=== PATIENT | female | born 1995 | race Caucasian/White ===

== ENCOUNTER → 2020-03-01 | Outpatient (REF) | payer SELFPAY | LOC: M LAB REF 12:36 | PROVIDERS: ATTEND Physician Assistant | DX: M54.5 Low back pain (principal) ==

== ENCOUNTER 2020-04-04 06:44 | Emergency (ER) | payer SELFPAY ==
[~2020-04-04] VITALS: Ht 162.6 cm; Wt 75.0 kg
--- NOTE | 2020-04-04 08:00 | REP ---
Right ankle series: Four views. History: Injury in a fall from a tree. Findings: Four views right ankle demonstrate moderate anterolateral soft-tissue swelling. Ankle mortise is intact. No fracture is visible. No subluxation seen. Impression: Anterolateral soft-tissue swelling. No fracture seen. Electronically Signed by Pieter Khalil MD 04/04/2020 07:52 A
[2020-04-04 08:12] VITALS: BP 118/70
[2020-04-04] MEDS ORDERED: ACETAMINOPHEN TAB 650MG DOSE (2X325MG) PO ONE (08:15)
== END 2020-04-04 08:14 | disposition home or self-care (01) ==
LOC: M ED 06:44
DX: S93.401A Sprain of unspecified ligament of right ankle, initial encounter (principal); W14.XXXA Fall from tree, initial encounter; Y92.89 Other specified places as the place of occurrence of the external cause; Y93.9 Activity, unspecified; Y99.9 Unspecified external cause status

== ENCOUNTER → 2021-07-26 | Outpatient (CLI) | payer SELFPAY ==
[2021-07-26 17:28] LABS: HEMATOCRIT 36.6 % (36.0-47.0); HEMOGLOBIN 11.9 g/dl (12.0-15.5); MEAN CORPUSCULAR HEMOGLOBIN 28.8 pg (27.0-33.0); MEAN CORPUSCULAR HGB CONC 32.5 g/dl (32.0-36.5); MEAN CORPUSCULAR VOLUME 88.6 fl (80.0-96.0); PLATELET COUNT, AUTOMATED 216 10^3/uL (150-450); RED BLOOD COUNT 4.13 10^6/uL (4.00-5.40); WHITE BLOOD COUNT 9.4 10^3/uL (4.0-10.0)
[2021-07-26 18:40] LABS: HEPATITIS C VIRUS ABY INDEX < 0.0 INDEX (<0.8); HIV 1&2 SCREEN CENTAUR NEGATIVE (NEGATIVE)
[2021-07-26 19:21] LABS: GC DNA AMPLIFICATION NEGATIVE (NEGATIVE)
== END ==
LOC: M PLALAB 15:40
PROVIDERS: ATTEND Obstetrics & Gynecology
DX: Z34.00 Encounter for supervision of normal first pregnancy, unspecified trimester (principal); Z3A.00 Weeks of gestation of pregnancy not specified

== ENCOUNTER → 2021-08-06 | Outpatient (CLI) | payer SELFPAY ==
--- NOTE | 2021-08-06 11:48 | REP ---
INDICATION: ANATOMY. COMPARISON: None. TECHNIQUE: Real-time sonographic evaluation of the gravid uterus performed. FINDINGS: Estimated gestational age is22 weeks 3 days, EDC 12/07/2021. Today's measurements indicate appropriate growth. Presentation: Cephalic Placenta anterior, grade 0, without evidence of placenta previa. heart rate is recorded at 147 beats per minute. Amniotic fluid is subjectively normal. Closed cervical length is measured at 4.3 cm. Biometry chart: BPD: 53 mm, 22 weeks days, 0 42nd percentile. HC: 201 mm, 22 weeks 2 days, 46th percentile AC: 168 mm, 21 weeks 5 days, 37th percentile Femur length: 38 mm, 22 weeks 1 days, 45th percentile HC to AC ratio: 1.20, normal range 1.04-1.23. Estimated weight: 467g, 26th percentile. anatomy: Cranium: Grossly normal Lateral Ventricles/Choroid Plexus: Grossly normal Posterior Fossa/Cerebellum: Grossly normal Nose/lips/profile: Grossly normal Four chamber heart: Grossly normal Right ventricular outflow tract: Grossly normal Left ventricular outflow tract: Grossly normal except for an echogenic focus in the left ventricle early likely related to chordae tendineae. Left-sided stomach: Grossly normal Kidneys: Grossly normal Bladder: Grossly normal Cord Insertion: Grossly normal 3 vessel cord: Grossly normal Spine: Grossly normal IMPRESSION: Viable single intrauterine gestation as above. <Electronically signed by Elder Durand > 08/06/21 [id number]
== END ==
LOC: M WHC 07:56
PROVIDERS: ATTEND Obstetrics & Gynecology
DX: Z34.02 Encounter for supervision of normal first pregnancy, second trimester (principal); Z36.89 Encounter for other specified antenatal screening; Z3A.22 22 weeks gestation of pregnancy

== ENCOUNTER → 2021-08-22 | Outpatient (REF) | payer SELFPAY | LOC: M SFHCWAGY 13:04 | PROVIDERS: ATTEND Advanced Practice Midwife | DX: Z36.89 Encounter for other specified antenatal screening (principal); Z3A.24 24 weeks gestation of pregnancy ==

== ENCOUNTER 2021-09-21 15:05 | Emergency (ER) | payer OTHER, SELFPAY ==
[~2021-09-21] VITALS: Ht 162.6 cm; Wt 84.1 kg
--- OUTSIDE RECORDS SUMMARY | 2021-09-21 15:16 | CCD ---
Author Author [facility] Address Unknown Phone Unavailable Support Name Relationship Address Phone CHAITANYA DIXON Next Of Kin [address] [place] [address] TULLYS Next Of Kin [address] [place] [address] BECKIE FINK Next [facility] Kin [facility] [place] [id number] UE Next Of Kin Unknown Unavailable LETHA TENORIO Next Of Kin [address] [place] [address] LANDEN TENORIO Next Of Kin [address] [place] [address] LOUISE SEPULVEDA Next Of Kin [address] [place] [address] CHAITANYA DIXON ECON [address] [place] [address] Unavailable Re-disclosure Warning The records that you are about to access may contain information from federally-assisted alcohol or drug abuse programs. If such information is present, then the following federally mandated warning applies: This information has been disclosed to you from records protected by federal confidentiality rules (42 CFR part 2). The federal rules prohibit you from making any further disclosure of this information unless further disclosure is expressly permitted by the written consent of the person to whom it pertains or as otherwise permitted by 42 CFR part 2. A general authorization for the release of medical or other information is NOT sufficient for this purpose. The Federal rules restrict any use of the information to criminally investigate or prosecute any alcohol or drug abuse patient.The records that you are about to access may contain highly sensitive health information, the redisclosure of which is protected by Article 27-F of the [place] State Public Health law. If you continue you may have access to information: Regarding HIV / AIDS; Provided by facilities licensed or operated by the [facility] Office of Mental Health; or Provided by the [facility] Office for People With Developmental Disabilities. If such information is present, then the following [facility] mandated warning applies: This information has been disclosed to you from confidential records which are protected by state law. State law prohibits you from making any further disclosure of this information without the specific written consent of the person to whom it pertains, or as otherwise permitted by law. Any unauthorized further disclosure in violation of state law may result in a fine or [place] [facility] sentence or both. A general authorization for the release of medical or other information is NOT sufficient authorization for further disc losure. Encounters Encounter Providers Location Date Indications Data Source(s ) Unknown [address] [facility], [facility] [address] 09/04/2021 12:00:00 AM EST eCW1 ([facility]) ( ESTOB) [facility] [address] [place] [address] 08/22/2021 12:00:00 AM EST eCW1 ([facility]) Unknown [address] [facility] [address] 07/29/2021 12:00:00 AM EDT eCW1 ([facility]) ( NEWOB) [facility] [address] [place] [address] 07/26/2021 12:00:00 AM EDT eCW1 ([facility]) Immunizations Vaccine Date Status Description Data Source(s) New in 2011. IIV4 07/26/2021 03:57:00 PM EDT completed eCW1 ([facility]) New in 2011. IIV4 07/26/2021 03:57:00 PM EDT completed eCW1 ([facility]) New in 2011. IIV4 07/26/2021 03:57:00 PM EDT completed eCW1 ([facility]) New in 2011. IIV4 07/26/2021 03:57:00 PM EDT completed eCW1 ([facility]) COVID-19 VACCINE Kaden 03/25/2021 12:00:00 AM EDT completed [facility] Vaccine Series Complete: YESThis Data wa s Submitted to [facility] Via [employer]. Medications Medication Brand Name Start Date Product Form Dose Route Admi nistrative Instructions Pharmacy Instructions Status Indications Reaction Description Data Source(s) NITROFURANTOIN, MACROCRYSTALS 25 MG / Ni trofurantoin, Monohydrate 75 MG Oral Capsule 100 mg NITROFURANTOIN MONOHYD/M-CRYST 09/04/2021 12:00:00 AM EST ca psule 14 TAKE ONE CAPSULE BY MOUTH TWICE A DAY FOR 7 DAYS TAKE ONE CAPSULE BY MOUTH TWICE A DAY FOR 7 DAYS SOLD: 09/04/2021 [facility] NITROFURANTOIN, MACROCRYSTALS 25 MG / Ni trofurantoin, Monohydrate 75 MG Oral Capsule Nitrofurantoin Monohyd Macro 100 MG Nitrofurantoin Monohyd Macro 100 MG 07/29/2021 12:00:00 AM EDT 1.0 {capsule} active Nitrofurantoin Monohyd Macro 100 MG eCW1 ([facility]) NITROFURANTOIN, MACROCRYSTALS 25 MG / Ni trofurantoin, Monohydrate 75 MG Oral Capsule Nitrofurantoin Monohyd Macro 100 MG Nitrofurantoin Monohyd Macro 100 MG 07/29/2021 12:00:00 AM EDT 1.0 {capsule} active Nitrofurantoin Monohyd Macro 100 MG eCW1 ([facility]) NITROFURANTOIN, MACROCRYSTALS 25 MG / Ni trofurantoin, Monohydrate 75 MG Oral Capsule Nitrofurantoin Monohyd Macro 100 MG Nitrofurantoin Monohyd Macro 100 MG 07/29/2021 12:00:00 AM EDT 1.0 {capsule} suspend ed Nitrofurantoin Monohyd Macro 100 MG eCW1 ([facility]) NITROFURANTOIN, MACROCRYSTALS 25 MG / Ni trofurantoin, Monohydrate 75 MG Oral Capsule Nitrofurantoin Monohyd Macro 100 MG Nitrofurantoin Monohyd Macro 100 MG 07/29/2021 12:00:00 AM EDT 1.0 {capsule} active Nitrofurantoin Monohyd Macro 100 MG eCW1 ([facility]) NITROFURANTOIN, MACROCRYSTALS 25 MG / Ni trofurantoin, Monohydrate 75 MG Oral Capsule 100 mg NITROFURANTOIN MONOHYD/M-CRYST 07/29/2021 12:00:00 AM EDT ca psule 14 TAKE ONE CAPSULE BY MOUTH TWICE A DAY FOR 7 DAYS TAKE ONE CAPSULE BY MOUTH TWICE A DAY FOR 7 DAYS SOLD: 07/29/2021 [facility] Insurance Providers Payer name Policy type / Coverage type Policy ID Covered alliance party ID Covered alliance party's relationship to willis Policy Willis Plan Information SELF PAY ONLY [id number] SP [id number] SELF PAY ONLY [id number] SP [id number] UNHC AMERICHOICE XIX -HMO [id number] 18 [id number] [facility] O [id number] S [id number] Medicaid Dental P [id number] S [id number] UNHC AMERICHOICE XIX -HMO UNAVAILABLE UNAVAILABLE UNHC COMMUNITY PLAN MCDO [id number] SP [id number] MEDICAID -CLINIC [id number] 18 [id number] MEDICAID P [id number] MEDICAID-O/P [id number] AETNA-O/P [id number] AETNA HEALTH SEIU AGUILA P [id number] O [id number] MEDICAID S UNAVAILABLE O UNAVAILA BLE AETNA HEALTH SEIU AGUILA P UNAVAILABLE O UNAVAILABLE MEDICAID-O/P [id number] 18 [id number] Problems, Conditions, and Diagnoses Code Display Name Description Problem Type Effective Dates Data Source(s) Z34.80 care Supervision of other normal Otto varela 07/26/2021 12:00:00 AM EDT eCW1 ([facility]) Surgeries/Procedures No Information Results ID Date Data Source [id number] 08/01/2021 09:05:00 PM EDT [facility] Name Value Range Interpretation Code Description Data Lidia rce(s) Supporting Document(s) Interpretation: No variant detected. [facility] Cystic Fibrosis Mutation PDF . [facility] Cystic Fibrosis Mutation 97 Comment: [facility] RESULTS: Negative for the 97 mutations a nalyzedINTERPRETATION:This individual is negative for the mutations analyzed.This negative result may need further interpretationdepending on the clinical indication. This result reducesbut does not eliminate the risk to be a CF carrier.COMMENTS:The detection rate varies with ethnicity and is listedbelow. The presence of an undetected mutation in the CFgene cannot be ruled out. In the absence of family history,the remaining risk that a person with a negative resultcould have at least one CF mutation is listed in the table.If there is a family history of CF, these risk figures donot apply. As detailed information regarding thisindividual's family history would permit a more accurateassessment of this individual's risk to be a carrier ofcystic fibrosis, please contact [facility] [phone] for a revised report.Mutation Detection Detection rates are based on mutationRates among Ethnic frequencies in patients affected withGroups cystic fibrosis. Among individuals with an atypical or mild presentation (e.g. congenital absence of the vas deferens, pancreatitis) detection rates may vary from those provided here. Carrier risk reduction when no family DetectionEthnicity history Rate ReferencesAfrican to 81% Nadya in Med 3:168, 2000AmericanAshkenazi 11/06 to 97% Am J Hum Nadya 51:951,1993JewishAsian - Not Insufficient data ProvidedCaucasian 11/05 to 93% Nadya in Med 3:168,2000; Nadya in Med 4:90, 2001Hispanic to 78% Nadya in Med 3:168,2000; www.dhs.[place].gov/pcfh/gdb /html/PDE/CFStudy.htmJewi, - Varies by Nadya Testing 5:47, 2000non-[facility] country Nadya Testing, 1:35, 1996 of originOther orMixed - Not Detection rate notEthnicity Provided determined and varies with ethnicityThis interpretation is based on the clinical and familyrelationship information provided and the currentunderstanding of the molecular genetics of this condition.MUTATIONS ANALYZED:tbvaaL594 0198ifp6 CFTRdele2,3 R334W*iozjtA993* 3659delC* U1989K R302ThksafL071* 1825rnn4 E60X R347P*1078delT 3791delC E92X O671F0061gqpVX 3849+10kbC to T* G178R R553X*1677delTA 3876delA G330X R560T*1717-1G to A* 3905insT G480C J030X0122-6Q to A 394delTT G542X* T98F8998+1G to A* 4016insT G551D* R812Q1687+5G to T 405+1G to A G85E* M8340H4547zwu67 405+3A to C K710X M5864M7665nwrK 406- 1G to A L206W T7765X7841sjg8 to A 444delA P0417S A833D6659pgv63txr4 457TAT to G Y4752L* N737H3683wrbK 574delA P574H S549R T to R3547gkxB 621+1G to T* V7030D C487F3910rrgPA to G 663delT Q359K/T360K J336P3160qraG* 711+1G to T* Q493X F1575N2115vnsZ 711+5G to A Q552X O2322A2417pkzU 712-1G to T Q890X J4528G*2789+5G to A* 935delA U1706E N2321U C to G4412rarE 936delTA H2669X V6729X C to G3120+1G to A* A455E* W2959Q* O336U8591V to A A559T Y816L0582gxfK C524X R117HACOG/ACMG recommendedMETHODS/LIMITATIONS:DNA is isolated from the sample and tested for the 97 CFmutations on the [employer] Array Platform (Rapid Mobile).Regions of the CFTR gene are amplified enzymatically andsubjected to a solution-phase multiplex allele-specificprimer extension with subsequent hybridization to a beadarray and fluorescence detection. Polymorphisms F508C,I506V and I507V are included in this panel to rule outfalse positive bkulcN944 homozygotes. Reflex testing of5T is included in the panel for R117H interpretation.False positive or negative results may occur for reasonsthat include genetic variants, blood transfusions, bonemarrow transplantation, erroneous representation offamily relationships or contamination of a samplewith maternal cells. The assay provides informationintended to be used for carrier screening in adults ofreproductive age, as an aid in screening, andas a confirmatory test for another medicallyestablished diagnosis in newborns and children. Thetest is not intended for use in diagnostictesting, pre-implantation screening, or for anystand-alone diagnostic purposes without confirmationby another medically established diagnostic productor procedure.Results Released By: Chris Elizabeth, Ph.D. , DirectorReport Released By: Chris Elizabeth, Ph.D., Director ID Date Data Source [id number] 08/01/2021 08:06:00 PM EDT [facility] Name Value Range Interpretation Code Description Data Lidia rce(s) Supporting Document(s) Informed Consent Needed [facility] TEST ORDERED: [id number] CYSTIC FIBROSIS MUT ATION 97Please Fax back to [phone]. Many states require laboratoriesto have documentation that the appropriate health care providerhas obtained informed consent from patients before the laboratoryconducts genetic testing. Informed consent includes the patientunderstanding the purpose of the test, how the test is performed,the reliability of the test, alternatives to testing, implicationsof test results, and options on how to instruct the laboratory tostore, use or dispose of the sample when testing is complete. [facility] did not receive any documentation of informed consentfor above mentioned patient and ordered tests. Please check thestatement applicable to this patient and sign below so that [facility]. [] I authorize and confirm patient consent for the above mentionedgenetic test(s). [] I have provided appropriate informed consent for the above mentioned test(s) and documentation of this consent is maintained in the patient record. Health care provider signature Date Printed name Fax back to [facility] at [phone] [facility] ID Date Data Source URINE CULTURE 07/26/2021 12:00:00 AM EDT eCW1 ([facility]) Name Value Range Interpretation Code Description Data Lidia rce(s) Supporting Document(s) URINE CULTURE eCW1 ([facility]) ID Date Data Source HBSAG 07/26/2021 12:00:00 AM EDT eCW1 ([facility]) Name Value Range Interpretation Code Description Data Lidia rce(s) Supporting Document(s) NEGATIVE NEGATIVE HBsAg eCW1 ([facility]) ID Date Data Source RUBELLA IMMUNE STATUS IgG 07/26/2021 12:00:00 AM EDT eCW1 ([facility]) Name Value Range Interpretation Code Description Data Lidia rce(s) Supporting Document(s) IMMUNE IMMUNE RUBELLA IgG QUALITATIVE eCW1 ( [facility]) ID Date Data Source SYPHILIS ANTIBODY (RPR SCREEN) 07/26/2021 12:00:00 AM EDT eC W1 ([facility]) Name Value Range Interpretation Code Description Data Lidia rce(s) Supporting Document(s) NONREACTIVE NONREACTIVE SYPHILIS eCW1 ([facility]) ID Date Data Source [id number] 07/26/2021 12:00:00 AM EDT eCW1 ([facility]) Name Value Range Interpretation Code Description Data Lidia rce(s) Supporting Document(s) HIV 1and2 ANTIBODY SCREEN eCW1 ([facility]) ID Date Data Source HEPATITIS C ANTIBODY INDEX 07/26/2021 12:00:00 AM EDT eCW1 ( [facility]) Name Value Range Interpretation Code Description Data Lidia rce(s) Supporting Document(s) < 0.0 <0.8 HEPATITIS C VIRUS JULIANA IND EX eCW1 ([facility]) ID Date Data Source CHLAMYDIA & GC DNA AMPLIFICAT 07/26/2021 12:00:00 AM EDT eCW 1 ([facility]) Name Value Range Interpretation Code Description Data Lidia rce(s) Supporting Document(s) Chlamydia trachomatis rRNA [Presence] in Unspecified specimen by Probe and target amplification method NEGATIVE NEGATIVE CHLAMYDIA DNA AMPLIFICATION eCW1 ([facility]) ID Date Data Source CBC - Complete Blood Count 07/26/2021 12:00:00 AM EDT eCW1 ( [facility]) Name Value Range Interpretation Code Description Data Lidia rce(s) Supporting Document(s) 9.4 4.0-10.0 WHITE BLOOD COUNT eCW1 ([facility]) 4.13 4.00-5.40 RED BLOOD COUNT eCW1 ([facility]) 36.6 36.0-47.0 HEMATOCRIT eCW1 ([facility]) 88.6 80.0-96.0 MEAN CORPUSCULAR VOLUME e CW1 ([facility]) 11.9 12.0-15.5 HEMOGLOBIN eCW1 ([facility]) 12.7 11.5-14.5 RED CELL DISTRIBUTION WID TH eCW1 ([facility]) 216 150-450 PLATELET COUNT, AUTOMATED eCW1 ([facility]) 32.5 32.0-36.5 MEAN CORPUSCULAR HGB CONC eCW1 ([facility]) 28.8 27.0-33.0 MEAN CORPUSCULAR HEMOGLOB IN eCW1 ([facility]) ID Date Data Source Type and Screen Prenatal1 07/26/2021 12:00:00 AM EDT eCW1 ([facility]) Name Value Range Interpretation Code Description Data Lidia rce(s) Supporting Document(s) NEGATIVE AB SCREEN PNP1 GEL (VIS) eCW1 ([facility]) Procedure Social History Code Duration Value Status Description Data Source(s ) Smoking 08/22/2021 12:00:00 AM EST Never Smoker completed Never S moker eCW1 ([facility]) Smoking 08/22/2021 12:00:00 AM EST Never Smoker completed Never S moker eCW1 ([facility]) Smoking 07/26/2021 12:00:00 AM EDT Never Smoker completed Never S moker eCW1 ([facility]) Smoking 07/26/2021 12:00:00 AM EDT Never Smoker completed Never S moker eCW1 ([facility]) Vital Signs ID Date Data Source UNK Name Value Range Interpretation Code Description Data Source(s) Body weight 185 [lb_av] 185 [lb_av] eCW1 ([facility]) Body weight 83.91 kg 83.91 kg eCW1 ([facility]) Body height 64 [in_i] 64 [in_i] eCW1 ([facility]) Body mass index (BMI) [Ratio] 31.755 kg/m2 31.7 55 kg/m2 eCW1 ([facility]) Systolic blood pressure 126 mm[Hg] 126 mm[Hg] e CW1 ([facility]) Diastolic blood pressure 70 mm[Hg] 70 mm[Hg] eCW1 ([facility]) Body mass index (BMI) [Ratio] 31.069 kg/m2 31.0 69 kg/m2 eCW1 ([facility]) Body weight 181 [lb_av] 181 [lb_av] eCW1 ([facility]) Body height 64 [in_i] 64 [in_i] eCW1 ([facility]) Systolic blood pressure 138 mm[Hg] 138 mm[Hg] e CW1 ([facility]) Diastolic blood pressure 78 mm[Hg] 78 mm[Hg] eCW1 ([facility]) Patient Treatment Plan of Care Planned Activity Planned Date Details Description Data Source (s) NITROFURANTOIN, MACROCRYSTALS 25 MG / Ni trofurantoin, Monohydrate 75 MG Oral Capsule 07/29/2021 12:00:00 AM EDT eCW1 ([facility]) NITROFURANTOIN, MACROCRYSTALS 25 MG / Ni trofurantoin, Monohydrate 75 MG Oral Capsule 07/29/2021 12:00:00 AM EDT eCW1 ([facility]) NITROFURANTOIN, MACROCRYSTALS 25 MG / Ni trofurantoin, Monohydrate 75 MG Oral Capsule 07/29/2021 12:00:00 AM EDT eCW ([facility])
--- OUTSIDE RECORDS SUMMARY | 2021-09-21 15:16 | CCD ---
Author Author [facility] Organization [facility] Address Unknown Phone Unavailable Care Team Providers Care Rolled Seat Trimmer Name Role Phone JimmyDunia Davis Unavailable PROBLEMS Type Condition ICD9-CM Code QPI68-YD Code Onset Dates Condition S tatus W/U Status Risk SNOMED Code Notes Problem Supervision of other normal Z34.80 Ac tive confirm [id number] ALLERGIES No Known Allergies ENCOUNTERS from 1997 to 2021-07-31 Encounter Location Date Provider Diagnosis [facility] [address] [place] [address] [place] [address] Jul, Dunia Allison Encounter for superv ision of normal first in second trimester Z34.02 ; 22 weeks gestation of Z3A.22 and Encounter for immunization Z23 IMMUNIZATIONS Vaccine Route Administration Date Status Influenza 6mo & up Fluzone IM Intramuscular Jul 26, 2021 Admi nistered SOCIAL HISTORY Tobacco Use: Social History Observation Description Date Details (start date - stop date) Never Smoker Sex Assigned At : Social History Observation Description Sex Assigned At Unknown Tobacco Use: Question Answer Notes Are you a: never smoker REASON FOR REFERRAL No Information VITAL SIGNS Weight 181 lbs Jul, Height 64 in Jul, BMI 31.069 kg/m2 Jul, Blood pressure systolic 138 mm Hg Jul, Blood pressure diastolic 78 mm Hg Jul, MEDICATIONS Medication SIG (Take, Route, Frequency, Duration) Notes Start Da te End Date Status 28-0.8 MG 1 tablet Orally Once a day Active Nitrofurantoin Monohyd Macro 100 MG 1 capsule Orally twice a day for 7 days 18 Jul, 2021 Active PROCEDURES No Information RESULTS Component Value Reference Range Type and Screen Prenatal1 Reviewed date:07/28/2021 17:56:04 Interpretation: Performing Lab:[facility] [address] [facility] [address] , ,[place] [address] AB SCREEN PNP1 GEL (VIS) NEGATIVE CBC - Complete Blood Count Reviewed date:07/28/2021 17:57:24 Interpretation: Performing Lab:[facility] [address] [place] [address] , ,[place] [address] WHITE BLOOD COUNT 9.4 4.0-10.0 RED BLOOD COUNT 4.13 4.00-5.40 HEMOGLOBIN 11.9 12.0-15.5 HEMATOCRIT 36.6 36.0-47.0 MEAN CORPUSCULAR VOLUME 88.6 80.0-96.0 MEAN CORPUSCULAR HEMOGLOBIN 28.8 27.0-33.0 MEAN CORPUSCULAR HGB CONC 32.5 32.0-36.5 RED CELL DISTRIBUTION WIDTH 12.7 11.5-14.5 PLATELET COUNT, AUTOMATED 216 150-450 CHLAMYDIA & GC DNA AMPLIFICAT Reviewed date:07/28/2021 17:57:56 Interpretation: Performing Lab:[facility] [address] [place] [address] , ,[place] [address] CHLAMYDIA DNA AMPLIFICATION NEGATIVE NEGATIVE GC DNA AMPLIFICATION NEGATIVE NEGATIVE HEPATITIS C ANTIBODY INDEX Reviewed date:07/28/2021 17:58:06 Interpretation: Performing Lab:[facility] [address] [place] [address] , ,[place] [address] HEPATITIS C VIRUS JULIANA INDEX < 0.0 <0.8 HIV 1and2 ANTIBODY SCREEN Reviewed date:07/28/2021 17:59:00 Interpretation: Performing Lab:[facility] [address] [place] [address] , ,[place] [address] SYPHILIS ANTIBODY (RPR SCREEN) Reviewed date:07/28/2021 17:59:13 Interpretation: Performing Lab:[facility] [address] [facility] [address] , ,[place] [address] SYPHILIS NONREACTIVE NONREACTIVE RUBELLA IMMUNE STATUS IgG Reviewed date:07/28/2021 17:59:23 Interpretation: Performing Lab:[facility] [address] [facility] [address] , ,[place] [address] RUBELLA IgG QUALITATIVE IMMUNE IMMUNE HBSAG Reviewed date:07/28/2021 18:00:02 Interpretation: Performing Lab:[facility] [address] [facility] [address] , ,[place] [address] HBsAg NEGATIVE NEGATIVE URINE CULTURE Reviewed date:07/29/2021 11:12:05 Interpretation: Performing Lab:[facility] [address] [facility] [address] , ,[place] [address] REASON FOR VISIT 1st pn MEDICAL (GENERAL) HISTORY Type Description Date Medical History asthma Surgical History tonsilectomy Hospitalization History see above Goals Section No Information Health Concerns No Information MEDICAL EQUIPMENT No Information MENTAL STATUS No Information FUNCTIONAL STATUS No Information ASSESSMENTS Encounter Date Diagnosis Assessment Notes Treatment Notes Treatm ent Clinical Notes Jul, Encounter for supervision of normal first in second trimester (ICD-10 - Z34.02) Jul, 22 weeks gestation of (ICD-10 - Z3A.22 ) Jul, Encounter for immunization (ICD-10 - Z23) PLAN OF TREATMENT Medication Medication Name Sig Start Date Stop Date Nitrofurantoin Monohyd Macro 100 MG 1 capsule Orally twice a day for 7 days Jul, Treatment Notes Test Name Order Date CF plus (97 mutation gene) 2021-07-26 SMN1 COPY NUMBER ANALYSIS 2021-07-26 [facility] OBS COMPLETE US 2021-07-26 Imm: Fluzone 6mo & older 0.5mL IM Influenza 2021-07-26 Next Appt Details 4 Weeks Reason: Provider Name:Mallorie Carol Youleonoralakeshawn, 2021-08-22 08:05:00 AM, [address] [facility], , [place], [address], Follow Up:4 WeeksPrenatal
--- OUTSIDE RECORDS SUMMARY | 2021-09-21 15:16 | CCD ---
Author Author [facility] Organization [facility] Address Unknown Phone Unavailable Care Team Providers Care Objective C Developer Name Role Phone Dunia Allison Unavailable PROBLEMS Type Condition ICD9-CM Code GCE51-PR Code Onset Dates Condition S tatus W/U Status Risk SNOMED Code Notes Problem Supervision of other normal Z34.80 Ac tive confirm [id number] ALLERGIES No Known Allergies ENCOUNTERS from 1997 to 2021-08-06 Encounter Location Date Provider Diagnosis [facility] [address] [place] [address] [place] [address] Jul, Dunia Keegan IMMUNIZATIONS Vaccine Route Administration Date Status Influenza [...] REASON FOR REFERRAL No Information VITAL SIGNS No information MEDICATIONS Medication SIG (Take, Route, Frequency, Duration) Notes Start Da te End Date Status 28-0.8 MG 1 tablet Orally Once a day Active Nitrofurantoin Monohyd Macro 100 MG 1 capsule Orally twice a day for 7 days Jul, Active PROCEDURES No Information RESULTS No Results REASON FOR VISIT UTI MEDICAL (GENERAL) HISTORY Type Description Date Medical History asthma Surgical History tonsilectomy Hospitalization History see above Goals Section No Information Health Concerns No Information MEDICAL EQUIPMENT No Information MENTAL STATUS No Information FUNCTIONAL STATUS No Information ASSESSMENTS No Information PLAN OF TREATMENT Medication Medication Name Sig Start Date Stop Date Nitrofurantoin Monohyd Macro 100 MG 1 capsule Orally twice a day for 7 days Jul, Next Appt Details Provider Name:Mallorie Mcdermott, 2021-08-22 08:05:00 AM, [address] [facility], , [place], [address],
--- OUTSIDE RECORDS SUMMARY | 2021-09-21 15:16 | CCD ---
Author Author [facility] Organization [facility] Address Unknown Phone Unavailable Care Team Providers Care Workforce Investment Act Career Manager Name Role Phone Mallorie Mcdermott Unavailable PROBLEMS Type Condition ICD9-CM Code [id number] Code Onset Dates Condition S tatus W/U Status Risk SNOMED Code Notes Problem Supervision of other normal Z34.80 Ac tive confirm [id number] ALLERGIES No Known Allergies ENCOUNTERS from 1997 to 2021-08-23 Encounter Location Date Provider Diagnosis [facility] [address] [place] [address] [place] [address] Aug, Mallorie Mcdermott 24 weeks gestatio n of Z3A.24 and Encounter for supervision of normal first , second trimester Z34.02 IMMUNIZATIONS Vaccine Route Administration Date Status Influenza [...] FOR REFERRAL No Information VITAL SIGNS Weight 185 lbs Aug, Weight-kg 83.91 kg Aug, Height 64 in Aug, BMI 31.755 kg/m2 Aug, Blood pressure systolic 126 mm Hg Aug, Blood pressure diastolic 70 mm Hg Aug, MEDICATIONS Medication SIG (Take, Route, Frequency, Duration) Notes Start Da te End Date Status Nitrofurantoin Monohyd Macro 100 MG 1 capsule Orally twice a day for 7 days 18 Jul, 2021 Not-Taking 28-0.8 MG 1 tablet Orally Once a day Active PROCEDURES No Information RESULTS No Results REASON FOR VISIT 4 WK PN MEDICAL (GENERAL) HISTORY Type Description Date Medical History asthma Surgical History tonsilectomy Hospitalization History see above Goals Section No Information Health Concerns No Information MEDICAL EQUIPMENT No Information MENTAL STATUS No Information FUNCTIONAL STATUS No Information ASSESSMENTS Encounter Date Diagnosis Assessment Notes Treatment Notes Treatm ent Clinical Notes Aug, 24 weeks gestation of (ICD-10 - Z3A.24 ) Aug, Encounter for supervision of normal first , second trimester (ICD-10 - Z34.02) PLAN OF TREATMENT Pending Tests Test Name Order Date AB SCREEN (INDIRECT MARIBETH)GEL Antibody Screen 2021-08 Type and Screen (D Rh Antibody Screen) 2021-08-22 CBC - Complete Blood Count 2021-08-22 CHLAMYDIA and GC DNA AMPLIFICAT 2021-08-22 URINE CULTURE 2021-08-22 Glucose Challenge Test 1 Hour 2021-08-22 Next Appt Details 4 Weeks Reason:- Routine follow up Provider Name:Tito Cullen, 2021-09-23 0 9:00:00 AM, [address] [facility], , [place], [address], Follow Up:4 Weeks- Routine follow up
[2021-09-21 15:42] VITALS: BP 130/54
--- OUTSIDE RECORDS SUMMARY | 2021-09-21 17:03 | CCD ---
Author Author [facility] Organization [facility] Address Unknown Phone Unavailable Support Name Relationship Address Phone CHAITANYA DIXON Next Of Kin [address] [place] [address] TULLYS Next Of Kin [address] [place] [address] BECKIE [place] [address] UE Next Of Kin Unknown Unavailable LETHA TENORIO Next Of Kin [address] [place] [address] LANDEN TENORIO Next Of Kin [address] [place] [address] LOUISE SEPULVEDA Next Of Kin [address] [place] [address] CHAITANYA DIXON ECON [address] [place] [address] Unavailable Re-disclosure Warning The records that you [...] is protected by Article 27-F of the [place] State Public Health law. If you continue you may have access to information: Regarding HIV / AIDS; Provided by facilities licensed or operated by the [facility] Office of Mental Health; or Provided by the [facility] Office for People With Developmental Disabilities. If such information is present, then the following [facility] mandated warning applies: This information [...] law may result in a fine or detention sentence or both. A general authorization for the release of medical or other information is NOT sufficient authorization for further disc losure. Encounters Encounter Providers Location Date Indications Data Source(s ) Unknown [address] [facility], [facility] [address] 09/04/2021 12:00:00 AM EST eCW1 (Critical access hospital) ( ESTOB) [facility] Est OB [address] [place] [address] 08/22/2021 12:00:00 AM EST eCW1 (Critical access hospital) Unknown [address] [facility] [address] 07/29/2021 12:00:00 AM EDT eCW1 (Critical access hospital) ( NEWOB) [facility] New OB Visit [address] [place] [address] 07/26/2021 12:00:00 AM EDT eCW1 (Critical access hospital) Immunizations Vaccine Date Status Description Data Source(s) New in 2011. IIV4 07/26/2021 03:57:00 PM EDT completed eCW1 ([facility]) New in 2011. IIV4 07/26/2021 03:57:00 PM EDT completed eCW1 ([facility]) New in 2011. IIV4 07/26/2021 03:57:00 PM EDT completed eCW1 ([facility]) New in 2011. IIV4 07/26/2021 03:57:00 PM EDT completed eCW1 ([facility]) COVID-19 VACCINE Kaden 03/25/2021 12:00:00 AM EDT completed [facility] Vaccine Series Complete: YESThis Data wa s Submitted to [facility] Via [facility]. Medications Medication Brand Name Start Date Product [...] A DAY FOR 7 DAYS SOLD: 09/04/2021 [facility] NITROFURANTOIN, MACROCRYSTALS 25 MG / Ni trofurantoin, Monohydrate 75 MG Oral Capsule Nitrofurantoin Monohyd Macro 100 MG Nitrofurantoin Monohyd Macro 100 MG 07/29/2021 12:00:00 AM EDT 1.0 {capsule} active Nitrofurantoin Monohyd Macro 100 MG eCW1 ([facility]) NITROFURANTOIN, MACROCRYSTALS 25 MG / Ni trofurantoin, Monohydrate 75 MG Oral Capsule Nitrofurantoin Monohyd Macro 100 MG Nitrofurantoin Monohyd Macro 100 MG 07/29/2021 12:00:00 AM EDT 1.0 {capsule} active Nitrofurantoin Monohyd Macro 100 MG eCW1 ([facility]) NITROFURANTOIN, MACROCRYSTALS 25 MG / Ni trofurantoin, Monohydrate 75 MG Oral Capsule Nitrofurantoin Monohyd Macro 100 MG Nitrofurantoin Monohyd Macro 100 MG 07/29/2021 12:00:00 AM EDT 1.0 {capsule} suspend ed Nitrofurantoin Monohyd Macro 100 MG eCW1 ([facility]) NITROFURANTOIN, MACROCRYSTALS 25 MG / Ni trofurantoin, Monohydrate 75 MG Oral Capsule Nitrofurantoin Monohyd Macro 100 MG Nitrofurantoin Monohyd Macro 100 MG 07/29/2021 12:00:00 AM EDT 1.0 {capsule} active Nitrofurantoin Monohyd Macro 100 MG eCW1 ([facility]) NITROFURANTOIN, MACROCRYSTALS 25 MG / Ni trofurantoin, [...] relationship to willis Policy Willis Plan Information PAXTON [id number] SP [id number] SELF PAY ONLY [id number] SP [id number] SELF PAY ONLY [id number] SP [id number] [employer]HC AMERICHOICE XIX -HMO [id number] 18 [id number] [facility] O [id number] S [id number] Medicaid Dental P [id number] S [id number] UNHC AMERICHOICE XIX -HMO UNAVAILABLE UNAVAILABLE [facility] COMMUNITY PL[facility] [id number] SP [id number] MEDICAID -CLINIC [id number] MEDICAID P [id number] S [id number] MEDICAID-O/P [id number] 18 [id number] AETNA-O/P [id number] AETNA HEALTH SEIU AGUILA P [id number] O [id number] MEDICAID S UNAVAILABLE O UNAVAILA BLE AETNA HEALTH SEIU AGUILA P UNAVAILABLE O UNAVAILABLE MEDICAID-O/P [id number] Problems, Conditions, and Diagnoses Code Display Name Description Problem Type Effective Dates Data Source(s) Z34.80 care Supervision of other normal P avery 07/26/2021 12:00:00 AM EDT eCW1 ([facility]) Surgeries/Procedures No Information Results ID Date Data Source [id number] 08/01/2021 09:05:00 PM EDT [facility] Name Value [...] be a carrier ofcystic fibrosis, please contact [employer] [facility] [phone] for a revised report.Mutation Detection Detection rates [...] 2001Hispanic to 78% Nadya in Med 3:168,2000; [email or web address], - Varies by Nadya Testing 5:47, 2000non-[facility] country Nadya Testing, 1:35, 1996 of originOther orMixed - Not Detection rate notEthnicity Provided determined and varies with ethnicityThis interpretation is based on the clinical and familyrelationship information provided and the currentunderstanding of the molecular genetics of this condition.MUTATIONS ANALYZED:[id number] 5674ino3 CFTRdele2,3 R334W*szhslD415* 3659delC* G0478S L849MlpugnS271* 5725gao1 E60X R347P*1078delT 3791delC E92X O618O7141gwiXP 3849+10kbC to T* G178R R553X*1677delTA 3876delA G330X R560T*1717-1G to A* 3905insT G480C S940P0670-3F to A 394delTT G542X* B29O7052+1G to A* 4016insT G551D* O816J0072+5G to T 405+1G to A G85E* Q5625W4114aww05 405+3A to C K710X W0263Y4196jcmP 406- 1G to A L206W U1266D3159nps9 to A 444delA G4928B D482L6351bcm28itl4 457TAT to G G3723H* S233I4448nkrP 574delA P574H S549R T to K1483gvzG 621+1G to T* L5043A B934Z2604louVT to G 663delT Q359K/T360K O971A0755lltE* 711+1G to T* Q493X F0666W9861epmM 711+5G to A Q552X A1624P5768wwmL 712-1G to T Q890X C1063J*2789+5G to A* 935delA V2974G Q7943F C to H1001gcoX 936delTA K2725B T6324G C to G3120+1G to A* A455E* V6002J* I067A9331T to A A559T K475I5849wfmG C524X R117HACOG/ACMG recommendedMETHODS/LIMITATIONS:DNA is isolated from the sample and tested for the 97 CFmutations on the [place] Array Platform ([employer]).Regions of the CFTR gene are amplified enzymatically andsubjected to a solution-phase multiplex allele-specificprimer extension with subsequent hybridization to a beadarray and fluorescence detection. Polymorphisms F508C,I506V and I507V are included in this panel to rule outfalse positive uuhvfK961 homozygotes. Reflex testing of5T is included in [...] Elizabeth, Ph.D., Director ID Date Data Source [id number] 08/01/2021 08:06:00 PM EDT [facility] Name Value Range Interpretation Code Description Data Lidia rce(s) Supporting Document(s) Informed Consent Needed [facility] p TEST ORDERED: [id number] CYSTIC FIBROSIS MUT ATION 97Please Fax back to [phone]. Many states require laboratoriesto have documentation that [...] of the sample when testing is complete. [facility] did not receive any documentation of informed consentfor above mentioned patient and ordered tests. Please check thestatement applicable to this patient and sign below so that [facility] the results for this patient. [] I authorize and confirm patient consent for the above mentionedgenetic test(s). [] I have provided appropriate informed consent for the above mentioned test(s) and documentation of this consent is maintained in the patient record. Health care provider signature Date Printed name Fax back to [facility] at [phone] [facility] ID Date Data Source URINE CULTURE 07/26/2021 12:00:00 AM EDT eCW1 ([facility]) Name Value Range Interpretation Code Description Data Lidia rce(s) Supporting Document(s) URINE CULTURE eCW1 ([facility]) ID Date Data Source HBSAG 07/26/2021 12:00:00 AM EDT eCW1 ([facility]) Name Value Range Interpretation Code Description Data Lidia rce(s) Supporting Document(s) NEGATIVE NEGATIVE HBsAg eCW1 ([facility]) ID Date Data Source RUBELLA IMMUNE STATUS IgG 07/26/2021 12:00:00 AM EDT eCW1 (Formerly [facility]) Name Value Range Interpretation Code Description Data Lidia rce(s) Supporting Document(s) IMMUNE IMMUNE RUBELLA IgG QUALITATIVE eCW1 ( [facility]) ID Date Data Source SYPHILIS ANTIBODY (RPR SCREEN) 07/26/2021 12:00:00 AM EDT eC W1 ([facility]) Name Value Range Interpretation Code Description Data Lidia rce(s) Supporting Document(s) NONREACTIVE NONREACTIVE SYPHILIS eCW1 ([facility]) ID Date Data Source [id number] 07/26/2021 12:00:00 AM EDT eCW1 ([facility]) Name Value Range Interpretation Code Description Data Lidia rce(s) Supporting Document(s) HIV 1and2 ANTIBODY SCREEN eCW1 ([facility]) ID Date Data Source HEPATITIS C ANTIBODY INDEX 07/26/2021 12:00:00 AM EDT eCW1 ( [facility]) Name Value Range Interpretation Code Description Data Lidia rce(s) Supporting Document(s) < 0.0 <0.8 HEPATITIS C VIRUS JULIANA IND EX eCW1 ([facility]) ID Date Data Source CHLAMYDIA & GC DNA AMPLIFICAT 07/26/2021 12:00:00 AM EDT eCW 1 ([facility]) Name Value Range Interpretation Code Description Data Lidia rce(s) Supporting Document(s) Chlamydia trachomatis rRNA [Presence] in Unspecified specimen by Probe and target amplification method NEGATIVE NEGATIVE CHLAMYDIA DNA AMPLIFICATION eCW1 ([facility]) ID Date Data Source CBC - Complete Blood Count 07/26/2021 12:00:00 AM EDT eCW1 ( [facility]) Name Value Range Interpretation Code Description Data Lidia rce(s) Supporting Document(s) 9.4 4.0-10.0 WHITE BLOOD COUNT eCW1 ([facility]) 4.13 4.00-5.40 RED BLOOD COUNT eCW1 ([facility]) 36.6 36.0-47.0 HEMATOCRIT eCW1 ([facility]) 88.6 80.0-96.0 MEAN CORPUSCULAR VOLUME e CW1 ([facility]) 11.9 12.0-15.5 HEMOGLOBIN eCW1 ([facility]) 12.7 11.5-14.5 RED CELL DISTRIBUTION WID TH eCW1 ([facility]) 216 150-450 PLATELET COUNT, AUTOMATED eCW1 ([facility]) 32.5 32.0-36.5 MEAN CORPUSCULAR HGB CONC eCW1 ([facility]) 28.8 27.0-33.0 MEAN CORPUSCULAR HEMOGLOB IN eCW1 ([facility]) ID Date Data Source Type and Screen Prenatal1 07/26/2021 12:00:00 AM EDT eCW1 ([facility]) Name Value Range Interpretation Code Description Data Lidia rce(s) Supporting Document(s) NEGATIVE AB SCREEN PNP1 GEL (VIS) eCW1 ([facility]) Procedure Social History Code Duration Value Status Description Data Source(s ) Smoking 08/22/2021 12:00:00 AM EST Never Smoker completed Never S moker eCW1 ([facility]) Smoking 08/22/2021 12:00:00 AM EST Never Smoker completed Never S moker eCW1 ([facility]) Smoking 07/26/2021 12:00:00 AM EDT Never Smoker completed Never S moker eCW1 ([facility]) Smoking 07/26/2021 12:00:00 AM EDT Never Smoker completed Never S moker eCW1 ([facility]) Vital Signs ID Date Data Source UNK Name Value Range Interpretation Code Description Data Source(s) Body weight 185 [lb_av] 185 [lb_av] eCW1 ([facility]) Body weight 83.91 kg 83.91 kg eCW1 ([facility]) Body height 64 [in_i] 64 [in_i] eCW1 ([facility]) Body mass index (BMI) [Ratio] 31.755 kg/m2 31.7 55 kg/m2 eCW1 ([facility]) Systolic blood pressure 126 mm[Hg] 126 mm[Hg] e CW1 ([facility]) Diastolic blood pressure 70 mm[Hg] 70 mm[Hg] eCW1 ([facility]) Body mass index (BMI) [Ratio] 31.069 kg/m2 31.0 69 kg/m2 eCW1 ([facility]) Body weight 181 [lb_av] 181 [lb_av] eCW1 ([facility]) Body height 64 [in_i] 64 [in_i] eCW1 ([facility]) Systolic blood pressure 138 mm[Hg] 138 mm[Hg] e CW1 ([facility]) Diastolic blood pressure 78 mm[Hg] 78 mm[Hg] eCW1 ([facility]) Patient Treatment Plan of Care Planned Activity Planned Date Details Description Data Source (s) NITROFURANTOIN, MACROCRYSTALS 25 MG / Ni trofurantoin, Monohydrate 75 MG Oral Capsule 07/29/2021 12:00:00 AM EDT eCW1 ([facility]) NITROFURANTOIN, MACROCRYSTALS 25 MG / Ni trofurantoin, Monohydrate 75 MG Oral Capsule 07/29/2021 12:00:00 AM EDT eCW1 ([facility]) NITROFURANTOIN, MACROCRYSTALS 25 MG / Ni trofurantoin, Monohydrate 75 MG Oral Capsule 07/29/2021 12:00:00 AM EDT eCW ([facility])
[2021-09-21 17:04] LABS: RSV AMPLIFICATION NEGATIVE (NEGATIVE)
[2021-09-21] MEDS ORDERED: ALBUTEROL 90 MCG/ACT 8GM HFA INHALER INH ONE (17:05)
--- NOTE | 2021-09-21 17:19 | REP ---
INDICATION: cough. COMPARISON: None. TECHNIQUE: AP portable chest image was obtained. FINDINGS: The lungs are clear. The heart borders mediastinum and pulmonary vascular pattern normal. The upper abdominal bowel gas pattern is normal. There are no significant bony abnormalities of the chest. IMPRESSION: No evidence of acute cardiopulmonary pathology. <Electronically signed by Alvaro Rowe > 09/21/21 [id number]
[2021-09-21 17:33] LABS: BASO % 0.3 % (0.0-1.0); EOS # 0.2 10^3/uL (0.0-0.5); EOS % 2.2 % (0.0-3.0); HEMATOCRIT 33.1 % (36.0-47.0); LYMPH # 1.1 10^3/uL (1.5-5.0); LYMPH % 10.3 % (24.0-44.0); MEAN CORPUSCULAR HEMOGLOBIN 29.3 pg (27.0-33.0); MEAN CORPUSCULAR HGB CONC 33.2 g/dl (32.0-36.5); MEAN CORPUSCULAR VOLUME 88.3 fl (80.0-96.0); MONO # 0.8 10^3/uL (0.0-0.8); MONO % 7.7 % (2.0-8.0); NEUTROPHILS # 8.2 10^3/uL (1.5-8.5); NEUTROPHILS % 78.9 % (36.0-66.0); PLATELET COUNT, AUTOMATED 185 10^3/uL (150-450); RED BLOOD COUNT 3.75 10^6/uL (4.00-5.40); WHITE BLOOD COUNT 10.4 10^3/uL (4.0-10.0)
[2021-09-21] MEDS ORDERED: PROV108A INH (18:08)
[2021-09-21] MEDS ORDERED: PRENTAB9 PO (18:58)
== END 2021-09-21 18:39 | disposition admitted as inpatient to this hospital (09) ==
LOC: M ED 15:05
DX: O99.513 Diseases of the respiratory system complicating pregnancy, third trimester (principal); O26.93 Pregnancy related conditions, unspecified, third trimester; Z3A.28 28 weeks gestation of pregnancy

== ENCOUNTER 2021-09-21 18:31 | Outpatient (CLI) | payer OTHER ==
[~2021-09-21] VITALS: Ht 162.6 cm; Wt 83.8 kg
[~2021-09-21 18:31] MED LIST: PROV108A INH
[2021-09-21 18:53] VITALS: BP 127/65
[2021-09-21] MEDS ORDERED: PRENTAB9 PO (18:58)
--- NOTE | 2021-10-10 14:06 | IPNPDOC ---
Text Note Date of Service The patient was seen on 09/21/21. NOTE L&D Triage note: S:26 year-old G1 at 29 weeks 0 days presents from the ED with pelvic abdominal cramping. She was seen in the ED for cough and was treated for upper respiratory infection. She is Covid negative. She denies any vaginal bleeding leakage of fluid or regular contractions. She reports active movement. O: vss, AF Cat 1 tracing, no ctx gen: well appearing abd: gravid, nttp UA: Consistent with a UTI. A/P 26yo G1 at 29wks with UTI Reassuring status -RX for macobid -Pyelonephritis precaution labor precautions and follow-up at next OB appointment MD EVA Andrade KENYA MD. Oct 10, 2021 14:06
== END 2021-09-21 20:10 | disposition home or self-care (01) ==
LOC: M LDO 18:31
PROVIDERS: ATTEND Obstetrics & Gynecology
DX: O26.893 Other specified pregnancy related conditions, third trimester (principal); R25.2 Cramp and spasm; O99.513 Diseases of the respiratory system complicating pregnancy, third trimester; J06.9 Acute upper respiratory infection, unspecified; Z3A.29 29 weeks gestation of pregnancy

== ENCOUNTER → 2021-09-23 | Outpatient (CLI) | payer OTHER ==
[~2021-09-23] MED LIST changes: +PRENTAB9 PO
[2021-09-23 14:42] LABS: HEMATOCRIT 32.5 % (36.0-47.0); HEMOGLOBIN 10.5 g/dl (12.0-15.5); MEAN CORPUSCULAR HEMOGLOBIN 29.1 pg (27.0-33.0); MEAN CORPUSCULAR HGB CONC 32.3 g/dl (32.0-36.5); PLATELET COUNT, AUTOMATED 186 10^3/uL (150-450); RED BLOOD COUNT 3.61 10^6/uL (4.00-5.40)
== END ==
LOC: M PLALAB 09:45
PROVIDERS: ATTEND Advanced Practice Midwife
DX: Z36.89 Encounter for other specified antenatal screening (principal); Z3A.24 24 weeks gestation of pregnancy

== ENCOUNTER → 2021-10-23 | Outpatient (REF) | payer OTHER | LOC: M SFHCWAGY 13:03 | PROVIDERS: ATTEND Advanced Practice Midwife | DX: O09.30 Supervision of pregnancy with insufficient antenatal care, unspecified trimester (principal) ==

== ENCOUNTER → 2021-11-13 | Outpatient (REF) | payer OTHER | LOC: M SFHCWAGY 17:09 | PROVIDERS: ATTEND Advanced Practice Midwife | DX: Z34.03 Encounter for supervision of normal first pregnancy, third trimester (principal); Z36.85 Encounter for antenatal screening for Streptococcus B ==

== ENCOUNTER 2021-12-14 18:27 | Inpatient (IN) | payer OTHER ==
[~2021-12-14] VITALS: Ht 162.6 cm; Wt 88.3 kg
[2021-12-14] MEDS ORDERED: LIDOCAINE 1% MDV 20ML VIAL INFIL PRN (19:30)
[2021-12-14] MEDS ORDERED: OXYTOCIN DRIP 30 UNITS in IV 1 EA IV PRN (19:30)
[2021-12-14] MEDS ORDERED: TRANEXAMIC ACID INJection 1,000 MG in NS 100 ML IV PRN (19:30)
[2021-12-14] MEDS ORDERED: CARBOPROST TROMETHAMINE 250 MCG/ML AMP IM PRN (19:30)
[2021-12-14] MEDS ORDERED: METHYLERGONOVINE MALEATE 0.2 MG/ML VIAL (J2210) IM PRN (19:30)
[2021-12-14] MEDS ORDERED: LR 1,000 ML IV SCH (19:30)
[2021-12-14] MEDS ORDERED: LACTATED RINGER'S 1000 ML IV STA (19:30)
[2021-12-14 20:18] LABS: HEMATOCRIT 34.5 % (36.0-47.0); HEMOGLOBIN 11.4 g/dl (12.0-15.5); MEAN CORPUSCULAR HEMOGLOBIN 28.7 pg (27.0-33.0); MEAN CORPUSCULAR VOLUME 86.9 fl (80.0-96.0); PLATELET COUNT, AUTOMATED 219 10^3/uL (150-450); RED BLOOD COUNT 3.97 10^6/uL (4.00-5.40); WHITE BLOOD COUNT 12.8 10^3/uL (4.0-10.0)
[2021-12-14] MEDS: miSOPROStol 50MCG 1/2 TABLET SL SCH (20:35)
[2021-12-15] VITALS (23 sets, daily range): BP systolic 96–128; BP diastolic 51–80
[2021-12-15] MEDS: miSOPROStol 50MCG 1/2 TABLET SL SCH (02:41)
[2021-12-15] MEDS ORDERED: OXYTOCIN DRIP 30 UNITS in IV 1 EA IV SCH (09:40)
[2021-12-15] MEDS ORDERED: PROMETHAZINE INJ 25 MG/ML VIAL (J2550) IV ONE (17:45)
[2021-12-15] MEDS ORDERED: BUTORPHANOL 2 MG/ML INJ (J0595) IV ONE (17:45)
[2021-12-15] MEDS ORDERED: FENTANYL 2MCG/ML ROPIVACAINE 0.2% IN 0.9% NACL 100ML IVBAG As Ordered ONE (20:14)
[2021-12-15] MEDS ORDERED: EPIDURAL/PCA KEYS XX PRN (22:05)
[2021-12-15] MEDS ORDERED: FENTANYL/ROPIVACAINE/NACL BAG 100 ML EPIDURAL SCH (22:05)
[2021-12-15] MEDS ORDERED: NALOXONE INJ 0.4MG/1ML VIAL (J2310 PER 1MG) IV PRN (22:05)
[2021-12-15] MEDS ORDERED: ePHEDrine SULFATE 25 MG/5 ML(5MG/ML) SYRINGE IV PRN (22:05)
[2021-12-15] MEDS ORDERED: LACTATED RINGER'S 1000 ML IV PRN (22:05)
[2021-12-15] MEDS ORDERED: diphenhydrAMINE 50MG/ML VIAL (J1200) IV PRN (22:05)
[2021-12-15] MEDS ORDERED: REFRIGERATOR IV KEYS XX PRN (22:05)
[2021-12-15] MEDS ORDERED: ONDANSETRON 4MG/2ML VIAL IV PRN (22:05)
[2021-12-15] MEDS ORDERED: EPIDURAL COMMENT XX SCH (22:05)
[2021-12-16] VITALS (7 sets, daily range): BP systolic 116–136; BP diastolic 58–76
[2021-12-16] MEDS ORDERED: ceFAZolin SOD 2 GM in IV 1 EA IV ONE (02:35)
[2021-12-16] MEDS ORDERED: AZITHROMYCIN INJ 500 MG, VIAL MATE ADAPTER 1 EACH in NS 250 ML IV ONE (02:35)
[2021-12-16] MEDS ORDERED: BICITRA 30ML SOLN UDC PO ONE (02:35)
[2021-12-16] MEDS ORDERED: LIDOCAINE 2% W/EPINEPHRINE 20ML VIAL **PRES FREE As Ordered ONE (02:45)
[2021-12-16] MEDS ORDERED: SODIUM BICARBONATE 8.4% INJ 50MEQ 50 ML VIAL As Ordered ONE (02:45)
[2021-12-16] MEDS ORDERED: OXYTOCIN INJ 10 UNITS/ML VIAL (J2590) As Ordered ONE ×2 (02:46→03:42)
[2021-12-16] MEDS ORDERED: ePHEDrine SULFATE 25 MG/5 ML(5MG/ML) SYRINGE As Ordered ONE (03:02)
[2021-12-16] MEDS ORDERED: PHENYLephrine 500MCG 5ML (100MCG/ML) SYRINGE As Ordered ONE (03:02)
[2021-12-16] MEDS ORDERED: METOCLOPRAMIDE INJ 10MG/2ML VIAL (J2765 PER 1) As Ordered ONE (03:16)
[2021-12-16] MEDS ORDERED: KETOROLAC 60MG 2ML VIAL As Ordered ONE (03:27)
[2021-12-16 03:28] LABS: CORD GAS ABE V -4.5; CORD GAS HCO3 V 20.8 MEQ/L; CORD GAS O2 SAT V 85.8 %; CORD GAS PCO2 V 39.6 mmHg; CORD GAS PH V 7.339 UNITS; CORD GAS PO2 V 41.8 mmHg; CORD GAS SBC V 20.5 MEQ/L; CORD GAS TCO2 V 22.1 MEQ/L
[2021-12-16 03:29] LABS: CORD GAS ABE A -5.5; CORD GAS HCO3 A 23.9 MEQ/L; CORD GAS O2 SAT A 43.8 %; CORD GAS PH A 7.197 UNITS; CORD GAS PO2 A 22.5 mmHg; CORD GAS SBC A 18.7 MEQ/L; CORD GAS TCO2 A 25.8 MEQ/L
[2021-12-16] MEDS ORDERED: METOCLOPRAMIDE INJ 10MG/2ML VIAL (J2765 PER 1) IV PRN (03:30)
[2021-12-16] MEDS ORDERED: NALBUPHINE HCL 10 MG/ML AMP (J2300) IV PRN ×2 (03:30→03:45)
[2021-12-16] MEDS ORDERED: NALOXONE INJ 0.4MG/1ML VIAL (J2310 PER 1MG) IV PRN ×2 (03:30)
[2021-12-16] MEDS ORDERED: diphenhydrAMINE 50MG/ML VIAL (J1200) IV PRN (03:30)
[2021-12-16] MEDS ORDERED: ONDANSETRON 4MG/2ML VIAL IV PRN ×3 (03:30→03:50)
[2021-12-16] MEDS ORDERED: MORPHINE PRES-FREE INJ 10 MG/10 ML VIAL (J2274) As Ordered ONE (03:31)
[2021-12-16] MEDS ORDERED: KETOROLAC 30 MG/ML 1ML VIAL IV PRN (03:45)
[2021-12-16] MEDS ORDERED: fentaNYL 100 MCG/2 ML INJECTION IV PRN (03:45)
[2021-12-16] MEDS ORDERED: oxyCODONE 5MG TAB PO PRN (03:45)
[2021-12-16] MEDS ORDERED: RHOGAM 300 MCG (1500 IU) INJ (J2790) IM SCH (03:50)
[2021-12-16] MEDS ORDERED: OXYTOCIN DRIP 30 UNITS in IV 1 EA IV SCH (03:50)
[2021-12-16] MEDS ORDERED: MEASLES,MUMPS,RUBELLA VACCINE INJ (MMR-II) (90707) SC SCH (03:50)
[2021-12-16] MEDS: LR 1,000 ML IV SCH ×2 (03:50→11:54)
[2021-12-16] MEDS ORDERED: OXYTOCIN 30 UNITS IN 0.9% NaCl 500ML IV BAG (J2590) As Ordered ONE (03:57)
[2021-12-16] MEDS ORDERED: PERCOCET PO (04:10)
[2021-12-16] MEDS ORDERED: COLA100C5 PO (04:10)
[2021-12-16] MEDS ORDERED: IBUP80TA PO (04:10)
[2021-12-16] MEDS: PERCOCET 5MG/325MG TAB PO PRN (06:37)
[2021-12-16] MEDS: PRENATAL VITAMINS CHEWABLE TABLET PO SCH (09:28)
[2021-12-16] MEDS: DOCUSATE SODIUM 100MG CAPSULE PO SCH ×2 (09:28→21:04)
[2021-12-16] MEDS: KETOROLAC 30 MG/ML 1ML VIAL IV SCH ×3 (09:50→21:04)
[2021-12-16] MEDS: SIMETHICONE 80MG CHEW TAB PO PRN (21:04)
[2021-12-17] VITALS (7 sets, daily range): BP systolic 105–142; BP diastolic 55–92
[2021-12-17] MEDS: PERCOCET 5MG/325MG TAB PO PRN ×3 (01:50→14:13)
[2021-12-17] MEDS: IBUPROFEN 800 MG TAB PO SCH ×3 (05:45→21:19)
[2021-12-17 07:01] LABS: HEMATOCRIT 24.6 % (36.0-47.0); HEMOGLOBIN 7.8 g/dl (12.0-15.5); MEAN CORPUSCULAR HEMOGLOBIN 29.2 pg (27.0-33.0); MEAN CORPUSCULAR HGB CONC 31.7 g/dl (32.0-36.5); MEAN CORPUSCULAR VOLUME 92.1 fl (80.0-96.0); PLATELET COUNT, AUTOMATED 190 10^3/uL (150-450); RED BLOOD COUNT 2.67 10^6/uL (4.00-5.40)
[2021-12-17] MEDS: DOCUSATE SODIUM 100MG CAPSULE PO SCH ×2 (07:58→21:18)
[2021-12-17] MEDS: PRENATAL VITAMINS CHEWABLE TABLET PO SCH (07:59)
[2021-12-17] MEDS: SIMETHICONE 80MG CHEW TAB PO PRN (21:18)
[2021-12-18 02:00] VITALS: BP 108/75
[2021-12-18] MEDS: PERCOCET 5MG/325MG TAB PO PRN ×2 (02:34→18:05)
[2021-12-18 06:00] VITALS: BP 117/77
[2021-12-18] MEDS: DOCUSATE SODIUM 100MG CAPSULE PO SCH (07:43)
[2021-12-18] MEDS: PRENATAL VITAMINS CHEWABLE TABLET PO SCH (07:43)
[2021-12-18] MEDS: IBUPROFEN 800 MG TAB PO SCH ×2 (07:43→13:12)
[2021-12-18 10:00] VITALS: BP 129/70
[2021-12-18 14:00] VITALS: BP 113/59
== END 2021-12-18 18:30 | disposition home or self-care (01) | DRG 540 ==
LOC: M LDI 18:27 → M OBS 12-16 05:25
PROVIDERS: ADMIT Obstetrics & Gynecology; ATTEND Obstetrics & Gynecology
PROC: 3E033VJ Introduction of Other Hormone into Peripheral Vein, Percutaneous Approach (ICD-10-PCS; 2021-12-14)
PROC: 10907ZC Drainage of Amniotic Fluid, Therapeutic from Products of Conception, Via Natural or Artificial Opening (ICD-10-PCS; 2021-12-15)
PROC: 10D00Z1 Extraction of Products of Conception, Low, Open Approach (ICD-10-PCS; principal; 2021-12-16 02:41)
DX: O48.0 Post-term pregnancy (principal); O76 Abnormality in fetal heart rate and rhythm complicating labor and delivery; Z37.0 Single live birth; Z3A.41 41 weeks gestation of pregnancy; O62.0 Primary inadequate contractions

== ENCOUNTER → 2022-05-21 | Outpatient (REF) | payer OTHER ==
[~2022-05-21] MED LIST changes: +COLA100C5 PO; +IBUP80TA PO; +PERCOCET PO
[2022-05-22 12:34] LABS: GC DNA AMPLIFICATION NEGATIVE (NEGATIVE)
== END ==
LOC: M SFHCWAGY 10:05
PROVIDERS: ATTEND Obstetrics & Gynecology
DX: Z12.4 Encounter for screening for malignant neoplasm of cervix (principal); Z11.3 Encounter for screening for infections with a predominantly sexual mode of transmission; R87.610 Atypical squamous cells of undetermined significance on cytologic smear of cervix (ASC-US)

== ENCOUNTER → 2022-09-10 | Outpatient (REF) | payer OTHER, MEDICAID ==
[~2022-09-10] MED LIST changes: +ALBU6.7H6 INH; -PROV108A INH
[2022-09-10 18:29] LABS: THYROID STIMULATING HORMONE 5.329 uIU/ML (0.55-4.78)
[2022-09-10 18:30] LABS: FREE T4 1.04 NG/DL (0.89-1.76)
== END ==
LOC: M LAB REF 16:31
PROVIDERS: ATTEND Nurse Practitioner Family
DX: R94.6 Abnormal results of thyroid function studies (principal)

== ENCOUNTER → 2022-11-10 | Outpatient (REF) | payer OTHER | LOC: M PLALAB 10:05 | PROVIDERS: ATTEND Nurse Practitioner Family | DX: N75.1 Abscess of Bartholin's gland (principal) ==

== ENCOUNTER → 2022-11-27 | Outpatient (REF) | payer OTHER | LOC: M LAB REF 16:10 | PROVIDERS: ATTEND Nurse Practitioner Family | DX: E06.3 Autoimmune thyroiditis (principal) ==

== ENCOUNTER → 2023-02-03 | Outpatient (CLI) | payer OTHER | LOC: M PLALAB 14:51 | PROVIDERS: ATTEND Advanced Practice Midwife | DX: O03.9 Complete or unspecified spontaneous abortion without complication (principal) ==

== ENCOUNTER → 2023-02-19 | Outpatient (REF) | payer OTHER ==
[2023-02-19 13:45] LABS: BASO # 0.1 10^3/uL (0.0-0.2); BASO % 0.8 % (0.0-1.0); EOS # 0.2 10^3/uL (0.0-0.5); EOS % 3.3 % (0.0-3.0); HEMATOCRIT 32.7 % (36.0-47.0); HEMOGLOBIN 9.8 g/dl (12.0-15.5); LYMPH # 1.8 10^3/uL (1.5-5.0); LYMPH % 27.8 % (24.0-44.0); MEAN CORPUSCULAR HEMOGLOBIN 25.9 pg (27.0-33.0); MEAN CORPUSCULAR VOLUME 86.5 fl (80.0-96.0); MONO # 0.6 10^3/uL (0.0-0.8); MONO % 9.7 % (2.0-8.0); NEUTROPHILS # 3.8 10^3/uL (1.5-8.5); NEUTROPHILS % 58.1 % (36.0-66.0); PLATELET COUNT, AUTOMATED 289 10^3/uL (150-450); RED BLOOD COUNT 3.78 10^6/uL (4.00-5.40); WHITE BLOOD COUNT 6.6 10^3/uL (4.0-10.0)
== END ==
LOC: M LAB REF 12:12
PROVIDERS: ATTEND Nurse Practitioner Family
DX: O03.9 Complete or unspecified spontaneous abortion without complication (principal); E06.3 Autoimmune thyroiditis

== ENCOUNTER → 2023-04-02 | Outpatient (REF) | payer OTHER ==
[2023-04-02 14:34] LABS: BASO # 0.1 10^3/uL (0.0-0.2); BASO % 0.8 % (0.0-1.0); EOS # 0.2 10^3/uL (0.0-0.5); EOS % 2.7 % (0.0-3.0); HEMATOCRIT 38.6 % (36.0-47.0); HEMOGLOBIN 11.8 g/dl (12.0-15.5); LYMPH # 2.1 10^3/uL (1.5-5.0); MEAN CORPUSCULAR HEMOGLOBIN 24.9 pg (27.0-33.0); MEAN CORPUSCULAR HGB CONC 30.6 g/dl (32.0-36.5); MEAN CORPUSCULAR VOLUME 81.6 fl (80.0-96.0); MONO # 0.7 10^3/uL (0.0-0.8); MONO % 9.1 % (2.0-8.0); NEUTROPHILS # 4.4 10^3/uL (1.5-8.5); NEUTROPHILS % 59.1 % (36.0-66.0); PLATELET COUNT, AUTOMATED 314 10^3/uL (150-450); RED BLOOD COUNT 4.73 10^6/uL (4.00-5.40); WHITE BLOOD COUNT 7.4 10^3/uL (4.0-10.0)
== END ==
LOC: M LAB REF 12:29
PROVIDERS: ATTEND Nurse Practitioner Family
DX: D64.9 Anemia, unspecified (principal)

== ENCOUNTER → 2023-06-16 | Outpatient (REF) | payer OTHER ==
[2023-06-16 12:04] LABS: BASO % 0.5 % (0.0-1.0); EOS # 0.2 10^3/uL (0.0-0.5); EOS % 2.8 % (0.0-3.0); HEMATOCRIT 39.6 % (36.0-47.0); HEMOGLOBIN 12.5 g/dl (12.0-15.5); LYMPH # 2.3 10^3/uL (1.5-5.0); LYMPH % 29.1 % (24.0-44.0); MEAN CORPUSCULAR HGB CONC 31.6 g/dl (32.0-36.5); MEAN CORPUSCULAR VOLUME 82.5 fl (80.0-96.0); MONO # 0.8 10^3/uL (0.0-0.8); MONO % 10.2 % (2.0-8.0); NEUTROPHILS # 4.4 10^3/uL (1.5-8.5); NEUTROPHILS % 57.1 % (36.0-66.0); PLATELET COUNT, AUTOMATED 232 10^3/uL (150-450); WHITE BLOOD COUNT 7.7 10^3/uL (4.0-10.0)
== END ==
LOC: M LAB REF 11:23
PROVIDERS: ATTEND Nurse Practitioner Family
DX: D64.9 Anemia, unspecified (principal)

== ENCOUNTER → 2023-08-04 | Outpatient (REF) | payer OTHER ==
[2023-08-04 13:49] LABS: ALBUMIN 3.9 G/DL (3.2-5.2); ALKALINE PHOSPHATASE 96 U/L (46-116); ALT/SGPT 18 U/L (7.0-40); AST/SGOT 18 U/L (<34); BILIRUBIN,TOTAL 0.2 MG/DL (0.3-1.2); BLOOD UREA NITROGEN 10 MG/DL (9-23); CALCIUM LEVEL 9.2 MG/DL (8.5-10.1); CARBON DIOXIDE LEVEL 26 MMOL/L (20-31); CHLORIDE LEVEL 104 MMOL/L (98-107); CHOLESTEROL LEVEL 161 MG/DL (<200); CHOLESTEROL RISK RATIO 3.47 (<5); CREATININE FOR GFR 0.74 MG/DL (0.55-1.30); GLOMERULAR FILTRATION RATE > 60.0 (>60); GLUCOSE, FASTING 96 MG/DL (60-100); HDL CHOLESTEROL 46.3 MG/DL (>40); LDL CHOLESTEROL 102.3 MG/DL (<100); NON-HDL-C 114.7 MG/DL; POTASSIUM SERUM 4.5 MMOL/L (3.5-5.1); SODIUM LEVEL 138 MMOL/L (136-145); THYROID STIMULATING HORMONE 4.265 uIU/ML (0.55-4.78); TOTAL PROTEIN 7.3 G/DL (5.7-8.2); TRIGLYCERIDES LEVEL 62 MG/DL (<150)
[2023-08-04 13:50] LABS: BASO % 0.9 % (0.0-1.0); EOS # 0.2 10^3/uL (0.0-0.5); EOS % 4.3 % (0.0-3.0); HEMATOCRIT 40.7 % (36.0-47.0); HEMOGLOBIN 13.3 g/dl (12.0-15.5); LYMPH # 1.2 10^3/uL (1.5-5.0); LYMPH % 26.3 % (24.0-44.0); MEAN CORPUSCULAR HEMOGLOBIN 27.7 pg (27.0-33.0); MEAN CORPUSCULAR HGB CONC 32.7 g/dl (32.0-36.5); MEAN CORPUSCULAR VOLUME 84.8 fl (80.0-96.0); MONO # 0.9 10^3/uL (0.0-0.8); MONO % 18.8 % (2.0-8.0); NEUTROPHILS # 2.3 10^3/uL (1.5-8.5); NEUTROPHILS % 49.3 % (36.0-66.0); PLATELET COUNT, AUTOMATED 216 10^3/uL (150-450); WHITE BLOOD COUNT 4.7 10^3/uL (4.0-10.0)
[2023-08-04 13:57] LABS: HEMOGLOBIN A1c 4.7 % (4.0-6.0)
== END ==
LOC: M LAB REF 12:35
PROVIDERS: ATTEND Nurse Practitioner Family
DX: Z00.00 Encounter for general adult medical examination without abnormal findings (principal); D64.9 Anemia, unspecified

== ENCOUNTER → 2023-08-06 | Outpatient (REF) | payer OTHER | LOC: M SFHCWAGY 17:34 | PROVIDERS: ATTEND Obstetrics & Gynecology | DX: Z12.4 Encounter for screening for malignant neoplasm of cervix (principal) ==

== ENCOUNTER → 2023-11-04 | Outpatient (CLI) | payer OTHER ==
[2023-11-04 16:33] LABS: HEMATOCRIT 39.1 % (36.0-47.0); HEMOGLOBIN 13.4 g/dl (12.0-15.5); MEAN CORPUSCULAR HEMOGLOBIN 29.5 pg (27.0-33.0); MEAN CORPUSCULAR HGB CONC 34.3 g/dl (32.0-36.5); MEAN CORPUSCULAR VOLUME 86.1 fl (80.0-96.0); PLATELET COUNT, AUTOMATED 250 10^3/uL (150-450); RED BLOOD COUNT 4.54 10^6/uL (4.00-5.40)
[2023-11-04 17:07] LABS: THYROID STIMULATING HORMONE 2.538 uIU/ML (0.55-4.78)
[2023-11-04 17:09] LABS: FREE T4 0.95 NG/DL (0.89-1.76)
[2023-11-04 17:32] LABS: HIV 1&2 SCREEN NEGATIVE (NEGATIVE)
[2023-11-04 17:40] LABS: HEPATITIS C VIRUS ABY INDEX 0.02 INDEX (<0.8)
== END ==
LOC: M PLALAB 14:18
PROVIDERS: ATTEND Advanced Practice Midwife
DX: Z34.81 Encounter for supervision of other normal pregnancy, first trimester (principal)

== ENCOUNTER 2023-11-19 15:36 | Emergency (ER) | payer OTHER ==
[~2023-11-19] VITALS: Ht 162.6 cm; Wt 89.8 kg
[2023-11-19] MEDS ORDERED: LEVO25TA5 (15:48)
[2023-11-19] MEDS ORDERED: VITA200032 (15:48)
[2023-11-19 16:33] LABS: BASO % 0.4 % (0.0-1.0); EOS # 0.1 10^3/uL (0.0-0.5); EOS % 1.4 % (0.0-3.0); HEMATOCRIT 36.4 % (36.0-47.0); HEMOGLOBIN 12.1 g/dl (12.0-15.5); LYMPH # 0.7 10^3/uL (1.5-5.0); LYMPH % 9.7 % (24.0-44.0); MEAN CORPUSCULAR HEMOGLOBIN 28.4 pg (27.0-33.0); MEAN CORPUSCULAR HGB CONC 33.2 g/dl (32.0-36.5); MEAN CORPUSCULAR VOLUME 85.4 fl (80.0-96.0); MONO # 0.6 10^3/uL (0.0-0.8); MONO % 8.1 % (2.0-8.0); NEUTROPHILS # 6.1 10^3/uL (1.5-8.5); NEUTROPHILS % 80.1 % (36.0-66.0); PLATELET COUNT, AUTOMATED 191 10^3/uL (150-450); RED BLOOD COUNT 4.26 10^6/uL (4.00-5.40); WHITE BLOOD COUNT 7.7 10^3/uL (4.0-10.0)
[2023-11-19 16:55] LABS: BLOOD UREA NITROGEN 6 MG/DL (9-23); CARBON DIOXIDE LEVEL 24 MMOL/L (20-31); CHLORIDE LEVEL 104 MMOL/L (98-107); CREATININE FOR GFR 0.56 MG/DL (0.55-1.30); GLOMERULAR FILTRATION RATE > 60.0 (>60); GLUCOSE, FASTING 102 MG/DL (60-100); POTASSIUM SERUM 3.5 MMOL/L (3.5-5.1); SODIUM LEVEL 136 MMOL/L (136-145)
[2023-11-19 17:08] LABS: HCG, SERUM QUANTITATIVE 27210.7 MIU/ML (<4.2)
[2023-11-19 18:30] VITALS: BP 116/56; TEMP 97.7; O2SAT 99
== END 2023-11-19 18:38 | disposition home or self-care (01) ==
LOC: M ED 15:36
DX: O44.02 Complete placenta previa NOS or without hemorrhage, second trimester (principal); E03.9 Hypothyroidism, unspecified; J45.909 Unspecified asthma, uncomplicated; Z79.52 Long term (current) use of systemic steroids; Z79.810 Long term (current) use of selective estrogen receptor modulators (SERMs); Z79.899 Other long term (current) drug therapy; Z3A.15 15 weeks gestation of pregnancy

== ENCOUNTER → 2023-12-24 | Outpatient (CLI) | payer OTHER ==
[~2023-12-24] MED LIST changes: +LEVO25TA5; +VITA200032
== END ==
LOC: M WHC 07:07
PROVIDERS: ATTEND Obstetrics & Gynecology
DX: Z34.92 Encounter for supervision of normal pregnancy, unspecified, second trimester (principal); Z3A.20 20 weeks gestation of pregnancy

== ENCOUNTER → 2024-02-04 | Outpatient (CLI) | payer OTHER | LOC: M WHC 13:12 | PROVIDERS: ATTEND Specialist | DX: Z34.82 Encounter for supervision of other normal pregnancy, second trimester (principal); Z3A.26 26 weeks gestation of pregnancy ==

== ENCOUNTER → 2024-02-10 | Outpatient (REF) | payer OTHER ==
[2024-02-10 13:44] LABS: BASO % 0.4 % (0.0-1.0); EOS # 0.1 10^3/uL (0.0-0.5); EOS % 1.5 % (0.0-3.0); HEMATOCRIT 33.4 % (36.0-47.0); HEMOGLOBIN 11.1 g/dl (12.0-15.5); LYMPH # 1.7 10^3/uL (1.5-5.0); LYMPH % 18.3 % (24.0-44.0); MEAN CORPUSCULAR HEMOGLOBIN 29.8 pg (27.0-33.0); MEAN CORPUSCULAR HGB CONC 33.2 g/dl (32.0-36.5); MEAN CORPUSCULAR VOLUME 89.8 fl (80.0-96.0); MONO # 0.7 10^3/uL (0.0-0.8); MONO % 7.5 % (2.0-8.0); NEUTROPHILS # 6.8 10^3/uL (1.5-8.5); NEUTROPHILS % 71.8 % (36.0-66.0); PLATELET COUNT, AUTOMATED 198 10^3/uL (150-450); RED BLOOD COUNT 3.72 10^6/uL (4.00-5.40); WHITE BLOOD COUNT 9.5 10^3/uL (4.0-10.0)
[2024-02-10 13:48] LABS: ALBUMIN 2.7 G/DL (3.2-5.2); ALKALINE PHOSPHATASE 88 U/L (46-116); ALT/SGPT < 9 U/L (7.0-40); AST/SGOT 9 U/L (<34); BILIRUBIN,TOTAL 0.3 MG/DL (0.3-1.2); BLOOD UREA NITROGEN 7 MG/DL (9-23); CALCIUM LEVEL 8.4 MG/DL (8.5-10.1); CARBON DIOXIDE LEVEL 25 MMOL/L (20-31); CHLORIDE LEVEL 104 MMOL/L (98-107); CHOLESTEROL LEVEL 313 MG/DL (<200); CHOLESTEROL RISK RATIO 4.35 (<5); CREATININE FOR GFR 0.62 MG/DL (0.55-1.30); GLOMERULAR FILTRATION RATE > 60.0 (>60); GLUCOSE, FASTING 77 MG/DL (60-100); HDL CHOLESTEROL 71.8 MG/DL (>40); NON-HDL-C 241.2 MG/DL; POTASSIUM SERUM 3.9 MMOL/L (3.5-5.1); SODIUM LEVEL 136 MMOL/L (136-145); TOTAL PROTEIN 6.2 G/DL (5.7-8.2); TRIGLYCERIDES LEVEL 176 MG/DL (<150)
[2024-02-10 13:49] LABS: THYROID STIMULATING HORMONE 3.232 uIU/ML (0.55-4.78); TOTAL 25(OH) VITAMIN D 6.5 NG/ML (20.0-100.0)
[2024-02-10 13:56] LABS: HEMOGLOBIN A1c 4.4 % (4.0-6.0)
== END ==
LOC: M LAB REF 12:57
PROVIDERS: ATTEND Nurse Practitioner Family
DX: E55.9 Vitamin D deficiency, unspecified (principal); E66.9 Obesity, unspecified

== ENCOUNTER → 2024-03-15 | Outpatient (CLI) | payer OTHER ==
[2024-03-15 19:01] LABS: HEMATOCRIT 34.4 % (36.0-47.0); HEMOGLOBIN 11.1 g/dl (12.0-15.5); MEAN CORPUSCULAR HEMOGLOBIN 29.2 pg (27.0-33.0); MEAN CORPUSCULAR HGB CONC 32.3 g/dl (32.0-36.5); MEAN CORPUSCULAR VOLUME 90.5 fl (80.0-96.0); PLATELET COUNT, AUTOMATED 186 10^3/uL (150-450)
== END ==
LOC: M PLALAB 14:43
PROVIDERS: ATTEND Obstetrics & Gynecology
DX: O34.211 Maternal care for low transverse scar from previous cesarean delivery (principal); Z3A.00 Weeks of gestation of pregnancy not specified

== ENCOUNTER → 2024-04-15 | Outpatient (REF) | payer OTHER ==
[~2024-04-15] MED LIST changes: +ERGO500029 PO; +SYNT25TA PO
== END ==
LOC: M SFHCWAGY 14:42
PROVIDERS: ATTEND Specialist
DX: Z34.83 Encounter for supervision of other normal pregnancy, third trimester (principal); Z36.85 Encounter for antenatal screening for Streptococcus B

== ENCOUNTER → 2024-10-24 | Outpatient (REF) | payer OTHER ==
[2024-10-24 13:01] LABS: BASO % 0.7 % (0.0-1.0); EOS # 0.2 10^3/uL (0.0-0.5); HEMATOCRIT 41.4 % (36.0-47.0); HEMOGLOBIN 13.6 g/dl (12.0-15.5); LYMPH # 1.6 10^3/uL (1.5-5.0); LYMPH % 28.7 % (24.0-44.0); MEAN CORPUSCULAR HEMOGLOBIN 27.5 pg (27.0-33.0); MEAN CORPUSCULAR HGB CONC 32.9 g/dl (32.0-36.5); MEAN CORPUSCULAR VOLUME 83.6 fl (80.0-96.0); MONO # 0.6 10^3/uL (0.0-0.8); MONO % 9.9 % (2.0-8.0); NEUTROPHILS # 3.3 10^3/uL (1.5-8.5); NEUTROPHILS % 57.5 % (36.0-66.0); PLATELET COUNT, AUTOMATED 232 10^3/uL (150-450); RED BLOOD COUNT 4.95 10^6/uL (4.00-5.40); WHITE BLOOD COUNT 5.7 10^3/uL (4.0-10.0)
[2024-10-24 13:08] LABS: ALBUMIN 3.8 G/DL (3.2-5.2); ALKALINE PHOSPHATASE 123 U/L (35-104); ALT/SGPT 20 U/L (7.0-40); AST/SGOT 16 U/L (<34); BILIRUBIN,TOTAL 0.4 MG/DL (0.3-1.2); BLOOD UREA NITROGEN 12 MG/DL (9-23); CALCIUM LEVEL 9.3 MG/DL (8.5-10.1); CARBON DIOXIDE LEVEL 26 MMOL/L (20-31); CHLORIDE LEVEL 105 MMOL/L (98-107); CREATININE FOR GFR 0.78 MG/DL (0.55-1.30); GLOMERULAR FILTRATION RATE > 60.0 (>60); GLUCOSE, FASTING 91 MG/DL (60-100); POTASSIUM SERUM 4.4 MMOL/L (3.5-5.1); SODIUM LEVEL 138 MMOL/L (136-145); TOTAL PROTEIN 7.8 G/DL (5.7-8.2)
[2024-10-24 13:10] LABS: FREE T4 1.01 NG/DL (0.89-1.76); THYROID STIMULATING HORMONE 3.326 uIU/ML (0.55-4.78)
== END ==
LOC: M LAB REF 12:29
PROVIDERS: ATTEND Nurse Practitioner Family
DX: E06.3 Autoimmune thyroiditis (principal); E66.9 Obesity, unspecified

== ENCOUNTER → 2025-02-14 | Outpatient (REF) | payer OTHER ==
[2025-02-14 18:44] LABS: ALBUMIN 3.9 G/DL (3.2-5.2); ALKALINE PHOSPHATASE 103 U/L (35-104); ALT/SGPT 18 U/L (7.0-40); AST/SGOT 16 U/L (<34); BILIRUBIN,TOTAL 0.4 MG/DL (0.3-1.2); BLOOD UREA NITROGEN 16 MG/DL (9-23); CALCIUM LEVEL 9.2 MG/DL (8.5-10.1); CARBON DIOXIDE LEVEL 26 MMOL/L (20-31); CHLORIDE LEVEL 105 MMOL/L (98-107); CHOLESTEROL LEVEL 168 MG/DL (<200); CHOLESTEROL RISK RATIO 3.07 (<5); CREATININE FOR GFR 0.77 MG/DL (0.55-1.30); GLOMERULAR FILTRATION RATE > 90.0 (>60); GLUCOSE, FASTING 93 MG/DL (60-100); HDL CHOLESTEROL 54.7 MG/DL (>40); LDL CHOLESTEROL 97.1 MG/DL (<100); MAGNESIUM LEVEL 1.6 MG/DL (1.8-2.4); NON-HDL-C 113.3 MG/DL; POTASSIUM SERUM 4.1 MMOL/L (3.5-5.1); SODIUM LEVEL 139 MMOL/L (136-145); THYROID STIMULATING HORMONE 3.193 uIU/ML (0.55-4.78); TOTAL 25(OH) VITAMIN D 21.9 NG/ML (20.0-100.0); TOTAL PROTEIN 7.2 G/DL (5.7-8.2); TRIGLYCERIDES LEVEL 81 MG/DL (<150)
[2025-02-14 18:52] LABS: BASO # 0.1 10^3/uL (0.0-0.2); BASO % 0.8 % (0.0-1.0); EOS # 0.1 10^3/uL (0.0-0.5); EOS % 2.3 % (0.0-3.0); HEMATOCRIT 42.9 % (36.0-47.0); HEMOGLOBIN 13.8 g/dl (12.0-15.5); LYMPH # 1.5 10^3/uL (1.5-5.0); LYMPH % 24.2 % (24.0-44.0); MEAN CORPUSCULAR HGB CONC 32.2 g/dl (32.0-36.5); MONO # 0.5 10^3/uL (0.0-0.8); MONO % 8.4 % (2.0-8.0); NEUTROPHILS # 3.9 10^3/uL (1.5-8.5); NEUTROPHILS % 64.1 % (36.0-66.0); PLATELET COUNT, AUTOMATED 253 10^3/uL (150-450); RED BLOOD COUNT 4.93 10^6/uL (4.00-5.40)
[2025-02-14 19:29] LABS: HEMOGLOBIN A1c 5.1 % (4.0-6.0)
== END ==
LOC: M LAB REF 17:56
PROVIDERS: ATTEND Nurse Practitioner Family
DX: E55.9 Vitamin D deficiency, unspecified (principal); E66.9 Obesity, unspecified